=== PATIENT | male | born 1980 | race Hispanic/Latino ===

== ENCOUNTER 2017-07-23 06:53 | Inpatient (IN) | payer SELFPAY ==
[~2017-07-23] VITALS: Ht 175.3 cm; Wt 91.1 kg
[2017-07-23] VITALS (13 sets, daily range): BP systolic 100–117; BP diastolic 44–72
[2017-07-23] MEDS ORDERED: LIDOCAINE HCL-MPF 2% 5ML VIAL ONE (07:05)
[2017-07-23] MEDS ORDERED: HEPARIN SODIUM 1000UNIT/ML 10ML VIAL ONE ×2 (07:07→07:19)
[2017-07-23] MEDS ORDERED: NITROGLYCERIN 5 MG/ML 10 ML VIAL IV ONE (07:07)
[2017-07-23] MEDS ORDERED: ISOVUE-370 50ML VIAL IV ONE (07:07)
[2017-07-23] MEDS ORDERED: IOPAMIDOL-370 100 ML VIAL IV ONE (07:07)
[2017-07-23] MEDS ORDERED: ATROPINE SULFATE 0.1 MG/ML 10 ML SYG IVP ONE (07:12)
[2017-07-23] MEDS ORDERED: NITROGLYCERIN 50 MG/D5% WATER 0 BOT ONE (07:12)
[2017-07-23] MEDS ORDERED: DOPAMINE HCL 400 MG/D5%-WATER 0 ML IV ONE (07:12)
[2017-07-23] MEDS ORDERED: BIVALIRUDIN 250 MG/VIAL IV ONE (07:19)
[2017-07-23] MEDS ORDERED: DiphenhydrAMINE HCL 50 MG/ML VIAL ONE (07:59)
[2017-07-23] MEDS ORDERED: HYDROCORTISONE SOD SUCCINATE 100 MG/2 ML VIAL ONE (07:59)
[2017-07-23] MEDS: NITROGLYCERIN 0.2 MG/HR PATCH TD SCH (09:00)
[2017-07-23] MEDS: CARVEDILOL 3.125 MG TABLET PO SCH ×3 (09:00→20:41)
[2017-07-23 11:49] LABS: CREATINE KINASE MB 148.5 ng/mL (0.5-3.6)
[2017-07-23 12:06] LABS: TROPONIN I 24.19 ng/mL (0.00-0.06)
[2017-07-23] MEDS: PANTOPRAZOLE SODIUM 40 MG TABLET.DR PO SCH (13:53)
[2017-07-23] MEDS ORDERED: AZITHROMYCIN 250 MG TABLET PO SCH (21:15)
[2017-07-23] MEDS: DILTIAZEM HCL 60 MG TABLET PO SCH (22:13)
[2017-07-24 01:49] LABS: CREATINE KINASE MB 30.6 ng/mL (0.5-3.6)
[2017-07-24 01:53] LABS: TROPONIN I 14.04 ng/mL (0.00-0.06)
[2017-07-24 04:00] VITALS: BP 99/57
[2017-07-24 04:25] VITALS: BP 108/60
[2017-07-24] MEDS: DILTIAZEM HCL 60 MG TABLET PO SCH ×2 (04:30→11:35)
[2017-07-24 05:01] LABS: HEMATOCRIT 39.8 % (42-54); MEAN CORPUSCULAR HEMOGLOBIN 31.7 pg (27.0-33.0); MEAN CORPUSCULAR HGB CONC 35.4 g/dL (32.0-36.0); MEAN CORPUSCULAR VOLUME 89.7 fL (79-99); PLATELET COUNT (AUTO) 254 K/uL (130-400); RED BLOOD CELL COUNT(AUTO) 4.44 MIL/uL (4.50-6.20); RED CELL DISTRIBUTION WIDTH 13.4 % (11.0-15.5); WHITE BLOOD COUNT (AUTO) 8.9 K/uL (4.8-10.8)
[2017-07-24 05:18] LABS: CREATININE 1.1 mg/dL (0.5-1.5); POTASSIUM 3.6 mmol/L (3.5-5.1)
[2017-07-24 07:12] VITALS: BP 102/55
[2017-07-24] MEDS ORDERED: GUAIFENESIN-DM 200/20 MG 10 ML PO PRN (08:15)
[2017-07-24] MEDS ORDERED: MAG HYDROX/AL HYDROX/SIMETH ES 30 ML SUSP UDCUP PO PRN (08:15)
[2017-07-24] MEDS ORDERED: NITROGLYCERIN 0.4 MG SL TAB SL PRN (08:15)
[2017-07-24] MEDS ORDERED: HYDRALAZINE HCL 20 MG/ML VIAL IV PRN (08:15)
[2017-07-24] MEDS ORDERED: ACETAMINOPHEN 325 MG TAB PO PRN ×2 (08:15)
[2017-07-24] MEDS ORDERED: LACTULOSE 20 GM/30 ML UDCUP PO PRN (08:15)
[2017-07-24] MEDS ORDERED: ONDANSETRON HCL 4 MG/2 ML VIAL IV PRN (08:15)
[2017-07-24] MEDS ORDERED: ACETAMINOPHEN-CODEINE 300/30MG TAB PO PRN (08:15)
[2017-07-24] MEDS: PANTOPRAZOLE SODIUM 40 MG TABLET.DR PO SCH (08:39)
[2017-07-24] MEDS: NITROGLYCERIN 0.2 MG/HR PATCH TD SCH (08:39)
[2017-07-24] MEDS ORDERED: DILTIAZEM HCL 180 MG CAP.SR.24H PO SCH (09:00)
[2017-07-24] MEDS ORDERED: ENOXAPARIN SODIUM 40 MG/0.4 ML SYRINGE SQ SCH (09:00)
[2017-07-24 11:19] VITALS: BP 101/64
[2017-07-24] MEDS ORDERED: DILT180C63 PO (13:28)
== END 2017-07-24 15:15 | disposition home or self-care (01) | DRG 282 ==
LOC: 2BH 07:51 → 2AH 14:41
PROVIDERS: ADMIT Internal Medicine Cardiovascular Disease; ATTEND Internal Medicine Cardiovascular Disease
PROC: 4A023N7 Measurement of Cardiac Sampling and Pressure, Left Heart, Percutaneous Approach (ICD-10-PCS; principal; 2017-07-23)
PROC: B2111ZZ Fluoroscopy of Multiple Coronary Arteries using Low Osmolar Contrast (ICD-10-PCS; 2017-07-23)
PROC: B2151ZZ Fluoroscopy of Left Heart using Low Osmolar Contrast (ICD-10-PCS; 2017-07-23)
DX: I21.4 Non-ST elevation (NSTEMI) myocardial infarction (principal); F14.10 Cocaine abuse, uncomplicated; F17.210 Nicotine dependence, cigarettes, uncomplicated; J02.0 Streptococcal pharyngitis
CPT/HCPCS: 36415; 80048; 82550; 82553; 83874; 84484; 85027; 87040; 87070; 87077; 87106; 87186; 93005; 93306; 93458; C1894; J0461; J0583; J1200; J1265; J1644; J1650; J1720; J3490; Q9967